=== PATIENT | female | born 1955 | race Caucasian/White ===

== ENCOUNTER 2020-10-05 10:31 | Emergency (ER) | payer OTHER ==
[~2020-10-05] VITALS: Ht 160 cm; Wt 72.6 kg
[~2020-10-05 10:31] MED LIST: AUGMENTIN 875-1 EACH PO; CIPRO500 MG PO; FLAGYL500 MG PO; ZOFRAN4 MG PO
== END 2020-10-05 14:05 | disposition home or self-care (01) ==
LOC: ER1 10:31
DX: Z23 Encounter for immunization (principal); U07.1 COVID-19; I10 Essential (primary) hypertension; Z90.710 Acquired absence of both cervix and uterus; Z88.5 Allergy status to narcotic agent
CPT/HCPCS: 99283; M0243; U0002

== ENCOUNTER → 2021-08-22 | Outpatient (CLI) | payer MEDICARE, OTHER | LOC: KOH-I 09:58 | DX: M25.562 Pain in left knee (principal) | CPT/HCPCS: 73562 ==